=== PATIENT | female | born 1935 | race Caucasian/White ===

== ENCOUNTER 2023-08-22 19:14 | Inpatient (IN) | payer MEDICARE, OTHER ==
[~2023-08-22] VITALS: Ht 154.9 cm; Wt 60.8 kg
[2023-08-22 19:51] LABS: EOSINOPHILS # (AUTO) 0.1 K/uL (0.0-0.7); EOSINOPHILS % (AUTO) 0.4 % (0.0-6.0); HEMATOCRIT 31 % (33-45); HEMOGLOBIN 9.8 g/dL (11.5-14.8); LYMPHOCYTES # (AUTO) 1.1 K/uL (0.8-4.8); LYMPHOCYTES % (AUTO) 4.9 % (20.0-44.0); MEAN CORPUSCULAR HEMOGLOBIN 29 PG (26.0-33.0); MEAN CORPUSCULAR HGB CONC 31 g/dl (31.0-36.0); MEAN CORPUSCULAR VOLUME 91 fL (82-100); MONOCYTES # (AUTO) 0.4 K/uL (0.1-1.30); MONOCYTES % (AUTO) 1.6 % (2.0-12.0); NEUTROPHILS # (AUTO) 20.4 K/uL (1.8-8.9); NEUTROPHILS % (AUTO) 93.1 % (43.0-81.0); PLATELET COUNT (AUTO) 298 K/uL (150-450); RED BLOOD CELL COUNT(AUTO) 3.42 MIL/uL (4.0-5.2); RED CELL DISTRIBUTION WIDTH 16.7 % (11.5-15.0)
[2023-08-22 20:05] LABS: INR 1.11 (0.91-1.10); PARTIAL THROMBOPLASTIN TIME 27.3 SEC (24.3-34.3); PROTHROMBIN TIME 11.7 SECS (9.2-11.1)
[2023-08-22 20:16] LABS: SERUM AMMONIA 11 umol/L (11-32)
[2023-08-22 20:19] LABS: ALANINE AMINOTRANSFERASE 41 U/L (12-78); ALBUMIN 1.7 g/dL (3.4-5.0); ALCOHOL, BLOOD < 3 mg/dL (0-10); ALKALINE PHOSPHATASE 95 U/L (46-116); ASPARTATE AMINOTRANSFERASE 16 U/L (15-37); BILIRUBIN,DIRECT 0.1 mg/dL (0.0-0.2); BILIRUBIN,TOTAL 0.4 mg/dL (0.2-1.0); CALCIUM, SERUM 8.9 mg/dL (8.5-10.1); CARBON DIOXIDE 19 mmol/L (21-32); CHLORIDE 123 mmol/L (98-107); CREATININE 4.2 mg/dL (0.6-1.3); GLUCOSE 193 mg/dL (74-106); TOTAL PROTEIN, SERUM 6.6 g/dL (6.4-8.2)
[2023-08-22 20:21] LABS: SODIUM SERUM 161 mmol/L (136-145)
[2023-08-22] MEDS ORDERED: CEFEPIME 1 GM VIAL ONE (20:21)
[2023-08-22 20:22] LABS: UREA NITROGEN, BLOOD 149 mg/dL (7-18)
[2023-08-22] MEDS ORDERED: ACETAMINOPHEN 650 MG/SUPP.RECT RC ONE (20:22)
[2023-08-22 20:23] LABS: SALICYLATE 2.4 mg/dL (2.8-20.0)
[2023-08-22 20:24] LABS: LACTIC ACID 1.7 mmol/L (0.4-2.0)
[2023-08-22] MEDS: IV NS 0.9% 1,000 ML BAG IV ONE (20:25)
[2023-08-22] MEDS: ACETAMINOPHEN 650 MG/SUPP.RECT RC ONE (20:30)
[2023-08-22] MEDS: CEFEPIME 1 GM in IV D5W 50 ML IV ONE (20:30)
[2023-08-22 20:34] LABS: THYROID STIMULATING HORMONE 11.062 uIU/mL (0.358-3.74)
[2023-08-22] MEDS ORDERED: VANCOMYCIN 1 GM /D5W 250 ML PB IV ONE (20:36)
[2023-08-22] MEDS ORDERED: MULT-447 PO (20:45)
[2023-08-22] MEDS ORDERED: CHOL400T11 PO (20:45)
[2023-08-22] MEDS ORDERED: MEGE40TA7 PO (20:45)
[2023-08-22] MEDS ORDERED: ASCO-373 PO (20:45)
[2023-08-22] MEDS ORDERED: PANT40TA49 PO (20:45)
[2023-08-22] MEDS ORDERED: FURO20TA4 PO (20:45)
[2023-08-22] MEDS ORDERED: AMIO200T5 PO (20:45)
[2023-08-22] MEDS ORDERED: ZINC220C2 PO (20:45)
[2023-08-22] MEDS ORDERED: APIX2.5T PO (20:45)
[2023-08-22] MEDS ORDERED: POLY17PO4 PO (20:45)
[2023-08-22] MEDS ORDERED: DOCU100C36 PO (20:45)
[2023-08-22] MEDS ORDERED: RISP0.5T5 PO (20:45)
[2023-08-22] MEDS ORDERED: LEVO125T8 PO (20:45)
[2023-08-22] MEDS ORDERED: POTA10CA43 PO (20:45)
[2023-08-22 20:46] LABS: APPEARANCE,URINE CLEAR (CLEAR); BILIRUBIN,URINE NEGATIVE (NEGATIVE); BLOOD, URINE TRACE-INTA Ery/uL (NEGATIVE); COLOR,URINE YELLOW (YELLOW); KETONES,URINE NEGATIVE (NEGATIVE); LEUKOCYTE ESTERASE ,URINE 3+ (NEGATIVE); NITRITE, URINE NEGATIVE (NEGATIVE); PROTEIN,URINE TRACE mg/dl (NEGATIVE); UGLUCOSE NEGATIVE (NEGATIVE); UROBILINOGEN,URINE 0.2 EU/dL (0.2)
[2023-08-22 20:57] LABS: AMPHETAMINE, URINE NEGATIVE (NEGATIVE); BARBITURATE, URINE NEGATIVE (NEGATIVE); BENZODIAZEPINE, URINE NEGATIVE (NEGATIVE); CANNABINOID, URINE NEGATIVE (NEGATIVE); COCCAINE, URINE NEGATIVE (NEGATIVE); OPIATE, URINE NEGATIVE (NEGATIVE); PHENCYCLIDINE SCREEN,URINE NEGATIVE (NEGATIVE)
[2023-08-22 20:59] LABS: ADD URINE CULTURE YES; BACTERIA,URINE Few /HPF (None Seen); MUCUS,URINE Few /LPF (None Seen); WBC,URINE 21-50 /HPF (0-3)
[2023-08-22] MEDS: VANCOMYCIN 1 GM in IV D5W 250 ML IV ONE (21:00)
[2023-08-22 21:14] LABS: ACETAMINOPHEN <10 ug/ml (10-30)
[2023-08-22 21:30] VITALS: BP 100/56; TEMP 97.6; O2SAT 93
[2023-08-22] MEDS ORDERED: MORPHINE SULFATE INJ 2 MG/ML DISP.SYRIN IV PRN (21:30)
[2023-08-22] MEDS ORDERED: ONDANSETRON HCL/PF 4 MG/2 ML VIAL IVP PRN (21:30)
[2023-08-22] MEDS ORDERED: ACETAMINOPHEN 650 MG/SUPP.RECT RC PRN (21:30)
[2023-08-22] MEDS ORDERED: Z GUARD REMEDY 4 OZ OINT TP PRN (21:30)
[2023-08-22] MEDS ORDERED: DEXTROSE 50%-WATER 50 ML DISP.SYRIN IV PRN (21:30)
[2023-08-22] MEDS: PANTOPRAZOLE 40 MG VIAL IV SCH (22:32)
[2023-08-22] MEDS: IV D5W 1,000 ML IV PRN (22:33)
[2023-08-22] MEDS: BLOOD SUGAR DIAGNOSTIC 1 EACH STRIP IN SCH (23:36)
[2023-08-22] MEDS: INSULIN REGULAR, HUMAN 100 UNIT/ML 3 ML VIAL SQ PRN (23:39)
[2023-08-23] VITALS: BP 74/45; TEMP 97.8; O2SAT 95
[2023-08-23] MEDS: IV NS 0.9% 250 ML IV ONE (01:24)
[2023-08-23 04:00] VITALS: BP 118/77; TEMP 97.8; O2SAT 98
[2023-08-23 07:11] LABS: BASOPHILS % (AUTO) 0.1 % (0.0-2.0); EOSINOPHILS # (AUTO) 0.1 K/uL (0.0-0.7); EOSINOPHILS % (AUTO) 0.6 % (0.0-6.0); HEMATOCRIT 30 % (33-45); HEMOGLOBIN 9.6 g/dL (11.5-14.8); LYMPHOCYTES # (AUTO) 0.8 K/uL (0.8-4.8); LYMPHOCYTES % (AUTO) 4.6 % (20.0-44.0); MEAN CORPUSCULAR HEMOGLOBIN 29 PG (26.0-33.0); MEAN CORPUSCULAR HGB CONC 31 g/dl (31.0-36.0); MEAN CORPUSCULAR VOLUME 93 fL (82-100); MONOCYTES # (AUTO) 0.3 K/uL (0.1-1.30); MONOCYTES % (AUTO) 1.6 % (2.0-12.0); NEUTROPHILS # (AUTO) 16.9 K/uL (1.8-8.9); NEUTROPHILS % (AUTO) 93.1 % (43.0-81.0); PLATELET COUNT (AUTO) 263 K/uL (150-450); RED BLOOD CELL COUNT(AUTO) 3.29 MIL/uL (4.0-5.2); WHITE BLOOD COUNT (AUTO) 18.2 K/uL (4.3-11.0)
[2023-08-23 07:35] LABS: CALCIUM, SERUM 8.8 mg/dL (8.5-10.1); CARBON DIOXIDE 19 mmol/L (21-32); CHLORIDE 123 mmol/L (98-107); CREATININE 4.1 mg/dL (0.6-1.3); GLUCOSE 277 mg/dL (74-106); MAGNESIUM 3.6 mg/dL (1.8-2.4); PHOSPHORUS 5.8 mg/dL (2.5-4.9); POTASSIUM 3.8 mmol/L (3.5-5.1)
[2023-08-23 07:39] LABS: SODIUM SERUM 159 mmol/L (136-145); UREA NITROGEN, BLOOD 146 mg/dL (7-18)
[2023-08-23 08:00] VITALS: BP 80/44; TEMP 97.5; O2SAT 98
[2023-08-23] MEDS: HEPARIN SODIUM, PORCINE 5000 UNITS/1 ML VIAL SQ SCH (08:18)
[2023-08-23] MEDS: CEFEPIME 1 GM in IV D5W 50 ML IV SCH (09:04)
[2023-08-23] MEDS: IV D5W 1,000 ML IV ONE (09:30)
[2023-08-23 12:00] VITALS: BP 83/44; TEMP 97.6; O2SAT 98
[2023-08-23 15:11] LABS: CALCIUM, SERUM 8.7 mg/dL (8.5-10.1); CARBON DIOXIDE 17 mmol/L (21-32); CHLORIDE 122 mmol/L (98-107); CREATININE 4.2 mg/dL (0.6-1.3); GLUCOSE 294 mg/dL (74-106); POTASSIUM 3.9 mmol/L (3.5-5.1); SODIUM SERUM 154 mmol/L (136-145)
[2023-08-23 15:18] LABS: UREA NITROGEN, BLOOD 148 mg/dL (7-18)
[2023-08-23 16:00] VITALS: BP 80/62; TEMP 98.4; O2SAT 98
[2023-08-23 20:00] VITALS: BP 86/57; TEMP 98.9; O2SAT 98
[2023-08-24] VITALS: BP 86/54; TEMP 98.3; O2SAT 96
[2023-08-24 04:00] VITALS: BP 88/56; TEMP 97.7; O2SAT 95
[2023-08-24 07:16] LABS: BASOPHILS % (AUTO) 0.1 % (0.0-2.0); EOSINOPHILS # (AUTO) 0.2 K/uL (0.0-0.7); EOSINOPHILS % (AUTO) 0.9 % (0.0-6.0); HEMATOCRIT 30 % (33-45); HEMOGLOBIN 9.3 g/dL (11.5-14.8); LYMPHOCYTES # (AUTO) 0.9 K/uL (0.8-4.8); LYMPHOCYTES % (AUTO) 5.2 % (20.0-44.0); MEAN CORPUSCULAR HEMOGLOBIN 29 PG (26.0-33.0); MEAN CORPUSCULAR HGB CONC 31 g/dl (31.0-36.0); MEAN CORPUSCULAR VOLUME 93 fL (82-100); MONOCYTES # (AUTO) 0.3 K/uL (0.1-1.30); MONOCYTES % (AUTO) 1.7 % (2.0-12.0); NEUTROPHILS # (AUTO) 15.5 K/uL (1.8-8.9); NEUTROPHILS % (AUTO) 92.1 % (43.0-81.0); PLATELET COUNT (AUTO) 215 K/uL (150-450); RED BLOOD CELL COUNT(AUTO) 3.21 MIL/uL (4.0-5.2); RED CELL DISTRIBUTION WIDTH 17.2 % (11.5-15.0); WHITE BLOOD COUNT (AUTO) 16.8 K/uL (4.3-11.0)
[2023-08-24 07:30] LABS: ALANINE AMINOTRANSFERASE 24 U/L (12-78); ALKALINE PHOSPHATASE 87 U/L (46-116); ASPARTATE AMINOTRANSFERASE 22 U/L (15-37); BILIRUBIN,TOTAL 0.4 mg/dL (0.2-1.0); CALCIUM, SERUM 8.7 mg/dL (8.5-10.1); CARBON DIOXIDE 20 mmol/L (21-32); CHLORIDE 120 mmol/L (98-107); CREATININE 4.2 mg/dL (0.6-1.3); GLUCOSE 324 mg/dL (74-106); MAGNESIUM 3.6 mg/dL (1.8-2.4); PHOSPHORUS 6.1 mg/dL (2.5-4.9); POTASSIUM 4.1 mmol/L (3.5-5.1); SODIUM SERUM 153 mmol/L (136-145); TOTAL PROTEIN, SERUM 5.8 g/dL (6.4-8.2)
[2023-08-24 08:00] VITALS: BP 93/59; TEMP 97.5; O2SAT 93
[2023-08-24 09:20] LABS: ALBUMIN 1.3 g/dL (3.4-5.0); UREA NITROGEN, BLOOD 142 mg/dL (7-18)
[2023-08-24] MEDS: THERAHONEY GEL 1.5 OZ TUBE TP SCH (09:20)
[2023-08-24] MEDS: DAKINS QUARTER STRENGTH (0.125%) 480 ML BOTTLE TOP SCH (09:20)
[2023-08-24 09:56] LABS: CREATINE KINASE, TOTAL 574 U/L (26-192)
[2023-08-24 12:00] VITALS: BP 93/56; TEMP 97.9; O2SAT 99
[2023-08-24 16:00] VITALS: BP 70/42; TEMP 97.5; O2SAT 100
[2023-08-24] MEDS: IV NS 0.9% 1,000 ML IV ONE (17:00)
[2023-08-25 09:08] LABS: PTH, INTACT 89 pg/mL (15-65)
[2023-08-25 11:07] LABS: *SPE A/G RATIO 0.4 (0.7-1.7); *SPE ALBUMIN 1.6 g/dL (2.9-4.4); *SPE ALPHA-1-GLOBULIN 0.4 g/dL (0.0-0.4); *SPE ALPHA-2-GLOBULIN 1.1 g/dL (0.4-1.0); *SPE BETA GLOBULIN 0.9 g/dL (0.7-1.3); *SPE GLOBULIN, TOTAL 3.8 g/dL (2.2-3.9); *SPE M-SPIKE Not Observed g/dL (Not Observed); *SPE PROTEIN TOTAL 5.4 g/dL (6.0-8.5); *SPEGAMMA GLOBULIN 1.4 g/dL (0.4-1.8)
[2023-08-25] MEDS ORDERED: VANCOMYCIN 750 MG in IV D5W 250 ML IV SCH (21:00)
== END 2023-08-25 07:01 | disposition hospice, inpatient (51) | DRG 871 ==
LOC: ER 19:33 → TELE-TD 21:18 → TELE1 08-24 09:57
PROVIDERS: ADMIT Nurse Practitioner Acute Care; ATTEND Internal Medicine
DX: A41.9 Sepsis, unspecified organism (principal); E43 Unspecified severe protein-calorie malnutrition; J15.69 Pneumonia due to other Gram-negative bacteria; G92.8 Other toxic encephalopathy; N17.0 Acute kidney failure with tubular necrosis; I13.0 Hypertensive heart and chronic kidney disease with heart failure and stage 1 through stage 4 chronic kidney disease, or unspecified chronic kidney disease; E87.0 Hyperosmolality and hypernatremia; E87.20 Acidosis, unspecified; I48.20 Chronic atrial fibrillation, unspecified; N39.0 Urinary tract infection, site not specified; D68.69 Other thrombophilia; E86.0 Dehydration; N18.9 Chronic kidney disease, unspecified; Z66 Do not resuscitate; Z51.5 Encounter for palliative care; D64.9 Anemia, unspecified; E03.9 Hypothyroidism, unspecified; E11.22 Type 2 diabetes mellitus with diabetic chronic kidney disease; E83.41 Hypermagnesemia; E78.5 Hyperlipidemia, unspecified; R62.7 Adult failure to thrive; Y95 Nosocomial condition; M62.50 Muscle wasting and atrophy, not elsewhere classified, unspecified site; Z74.09 Other reduced mobility; I48.91 Unspecified atrial fibrillation; G30.9 Alzheimer's disease, unspecified; F02.80 Dementia in other diseases classified elsewhere, unspecified severity, without behavioral disturbance, psychotic disturbance, mood disturbance, and anxiety; Z68.25 Body mass index [BMI] 25.0-25.9, adult; B96.89 Other specified bacterial agents as the cause of diseases classified elsewhere; I25.10 Atherosclerotic heart disease of native coronary artery without angina pectoris; I50.9 Heart failure, unspecified; Z79.4 Long term (current) use of insulin
CPT/HCPCS: 36415; 70450-TC; 71045-TC; 76770-TC; 80048-TC; 80053-TC; 80076-TC; 80202-TC; 81001; 82140-TC; 82550-TC; 82553; 82962-TC; 83605-TC; 83735-TC; 83970; 84100-TC; 84155; 84165; 84443-TC; 84484-TC; 85025-TC; 85730-TC; 87040-TC; 87081-TC; 87086-TC; 92526; 92611-TC; A4223; C9113; G0378; G0480; J0692; J1644; J1815; J3370; J7030; J7042; J7050; J7060; J7070

== ENCOUNTER 2023-08-24 22:10 | Inpatient (IN) | payer OTHER ==
[~2023-08-24 22:10] MED LIST: AMIO200T5 PO; APIX2.5T PO; ASCO-373 PO; CHOL400T11 PO; DOCU100C36 PO; FURO20TA4 PO; LEVO125T8 PO; MEGE40TA7 PO; MULT-447 PO; PANT40TA49 PO; POLY17PO4 PO; POTA10CA43 PO; RISP0.5T5 PO; ZINC220C2 PO
[2023-08-25] VITALS: BP 77/59; TEMP 98.3; O2SAT 82
[2023-08-25 04:00] VITALS: BP 71/59; TEMP 97.5; O2SAT 92
[2023-08-25] MEDS ORDERED: LORAZEPAM INJ 2 MG/ML VIAL IVP PRN (07:00)
[2023-08-25 08:00] VITALS: BP 82/61; TEMP 97.8; O2SAT 92
[2023-08-25] MEDS: MORPHINE SULFATE INJ 2 MG/ML DISP.SYRIN IV PRN (12:22)
[2023-08-25] MEDS: SCOPOLAMINE PATCH 1 MG/72HR TD SCH (13:24)
[2023-08-25] MEDS ORDERED: KEY,NONCONTROL,TO KEEP IN PYXI 1 EA MC ONE (13:41)
[2023-08-25 16:00] VITALS: BP 90/60; TEMP 97.9; O2SAT 94
[2023-08-25 20:00] VITALS: BP 80/49; TEMP 97.5; O2SAT 92
[2023-08-26 04:00] VITALS: BP 87/54; TEMP 97.9; O2SAT 95
[2023-08-26 08:00] VITALS: BP 78/52; TEMP 97.1; O2SAT 96
[2023-08-26] MEDS ORDERED: KEY,NONCONTROL,TO KEEP IN PYXI 1 EA MC ONE ×2 (13:33→13:40)
[2023-08-26 16:00] VITALS: BP 70/52; TEMP 98.7; O2SAT 90
[2023-08-26 20:00] VITALS: BP 52/41; TEMP 99.3; O2SAT 93
[2023-08-27] VITALS: BP 48/38; TEMP 99.8; O2SAT 87
[2023-08-27] MEDS ORDERED: KEY,NONCONTROL,TO KEEP IN PYXI 1 EA MC ONE (03:27)
== END 2023-08-27 06:59 | DRG 951 ==
LOC: HOSPICE1 22:10
PROVIDERS: ADMIT Internal Medicine; ATTEND Internal Medicine
DX: Z51.5 Encounter for palliative care (principal); A41.9 Sepsis, unspecified organism; E43 Unspecified severe protein-calorie malnutrition; J15.69 Pneumonia due to other Gram-negative bacteria; N17.0 Acute kidney failure with tubular necrosis; G93.41 Metabolic encephalopathy; D68.69 Other thrombophilia; E87.0 Hyperosmolality and hypernatremia; I13.0 Hypertensive heart and chronic kidney disease with heart failure and stage 1 through stage 4 chronic kidney disease, or unspecified chronic kidney disease; N39.0 Urinary tract infection, site not specified; N18.9 Chronic kidney disease, unspecified; Z66 Do not resuscitate; D64.9 Anemia, unspecified; Z74.09 Other reduced mobility; B96.89 Other specified bacterial agents as the cause of diseases classified elsewhere; E03.9 Hypothyroidism, unspecified; E11.22 Type 2 diabetes mellitus with diabetic chronic kidney disease; E86.0 Dehydration; E78.5 Hyperlipidemia, unspecified; G30.9 Alzheimer's disease, unspecified; F02.80 Dementia in other diseases classified elsewhere, unspecified severity, without behavioral disturbance, psychotic disturbance, mood disturbance, and anxiety; I25.10 Atherosclerotic heart disease of native coronary artery without angina pectoris; I48.91 Unspecified atrial fibrillation; I50.9 Heart failure, unspecified; R62.7 Adult failure to thrive; M62.50 Muscle wasting and atrophy, not elsewhere classified, unspecified site; Z68.25 Body mass index [BMI] 25.0-25.9, adult
CPT/HCPCS: A4223; G0378; J2270; J2274; J7050; J7060